=== PATIENT | male | born 1995 | race Caucasian/White ===

== ENCOUNTER → 2018-10-11 | Outpatient (CLI) | payer OTHER ==
--- NOTE | 2018-10-11 09:22 | RAD ---
EXAM: Abdomen sonogram. HISTORY: Pain. TECHNIQUE: Sonographic imaging of the abdomen was performed. COMPARISON: None. FINDINGS: The liver is normal in size. No focal hepatic lesion is seen. The gallbladder is unremarkable. The kidneys are normal in size. There is no hydronephrosis. The pancreas is partially obscured due to bowel gas. The aorta is normal in caliber. The inferior vena cava is patent. The spleen is normal in size. The common bile duct is normal in caliber. IMPRESSION: Relatively unremarkable abdomen sonogram. Electronically signed by: Lilliana Mark MD (10/11/2018 9:18 AM) [facility]
== END | disposition home or self-care (01) ==
LOC: US 08:05
PROVIDERS: ATTEND Nurse Practitioner Family
DX: R10.84 Generalized abdominal pain (principal)
CPT/HCPCS: 76700